=== PATIENT | male | born 1950 | race Caucasian/White ===

== ENCOUNTER → 2018-06-23 | Outpatient (CLI) | payer MEDICARE, OTHER ==
[~2018-06-23] MED LIST: ASPI-1471 PO; PANT20TA27 PO; ROS10 PO
== END ==
LOC: LAB 09:58
PROVIDERS: ATTEND Urology
DX: Z00.00 Encounter for general adult medical examination without abnormal findings (principal); N40.2 Nodular prostate without lower urinary tract symptoms
CPT/HCPCS: 36415; 84153